=== PATIENT | female | born 1965 | race Caucasian/White ===

== ENCOUNTER → 2017-02-09 | Outpatient (CLI) | payer OTHER ==
[~2017-02-09] MED LIST: BCPILLS PO; CALCTAB7 PO; GLCSC500400 PO; LORA-741 PO; OMEG10007 PO; OXYC-57 PO
--- NOTE | 2017-02-09 14:35 | DIAGNOSTIC IMAGING REPORT ---
LUMBAR SPINE MRI HISTORY: Pain. Neuropathy. M51.06 TECHNIQUE: Multiplanar multisequence MRI of the lumbar spine was performed without the use of contrast. COMPARISON: None. FINDINGS: For the purpose of the report the L5-S1 disc space will be located on axial image 27 of 30. Normal signal characteristics the vertebral bodies. Mild disc desiccation with posterior bulging disc components at L5-S1. Remaining intervertebral discs are unremarkable. L1-L2: No significant central canal or neural foraminal narrowing. L2-L3: No significant central canal or neural foraminal narrowing. L3-L4: No significant central canal or neural foraminal narrowing. L4-L5: No significant central canal or neural foraminal narrowing. L5-S1: Mild right posterior disc herniation. Slight displacement right S1 nerve root. Minimal impact anterior thecal sac. Left neuroforamina is patent. IMPRESSION: 1. Mild right posterior disc herniation L5-S1. 2. Otherwise negative MRI of lumbar spine. Electronically signed by: Yunior Berrios M.D. 02/09/2017 2:33 PM Dictated Date/Time: 02/09/2017 2:30 PM
== END | disposition home or self-care (01) ==
LOC: C.MRIBC 13:20
PROVIDERS: ATTEND Family Medicine
DX: M51.17 Intervertebral disc disorders with radiculopathy, lumbosacral region (principal)

== ENCOUNTER 2017-05-18 13:58 | Emergency (ER) | payer OTHER ==
[~2017-05-18] VITALS: Ht 163.8 cm; Wt 57.0 kg
[~2017-05-18 13:58] MED LIST changes: -OXYC-57 PO
[2017-05-18 14:01] VITALS: Ht 163.8 cm; Wt 57.0 kg
[2017-05-18] MEDS ORDERED: ONDANSETRON INJ 2 MG/ML 2 ML VIAL IV STA (14:17)
--- NOTE | 2017-05-18 14:22 | EMERGENCY ROOM VISIT NOTE ---
History First contact with patient: 14:09 Chief Complaint: DIZZY Stated Complaint: LIGHTHEADED-CODE PURPLE History of Present Illness The patient is a 51 year old female who presents to the Emergency Room with complaints of a near syncopal episode prior to arrival. The patient is in the hospital to visit her father who is admitted. She started feeling nauseous, and thought that she needed to eat something as she only had a protein shake earlier this morning. When she was waiting for her food at the snack bar, she began feeling lightheaded and her vision was starting to go white. She denies any headache. She is still complaining of nausea. She denies any abdominal pain. She felt fine yesterday, and denies any recent illnesses. She reports eating and drinking normally yesterday. She denies any new medications. Review of Systems 10 system review performed and negative unless noted in HPI or below Past Medical/Surgical History Herniated disc in her back Social History Smoking Status: Never Smoker Alcohol Use: occasionally Current/Historical Medications Scheduled Oxycodone/Acetaminophen 5MG/325MG (Percocet 5MG/325MG), 1 TABLET PO DAILY Physical Exam Vital Signs Date Time Temp Pulse Resp B/P (MAP) Pulse Ox O2 Delivery O2 Flow Rate FiO2 05/18/17 15:49 65 20 120/72 97 Room Air 05/18/17 15:26 70 05/18/17 14:54 66 115/78 71 114/85 79 123/86 05/18/17 14:18 72 20 118/75 97 Room Air 05/18/17 14:01 91 15 127/76 100 Room Air Physical Exam VITALS: Vitals are noted on the nurse's note and reviewed by myself. Vital signs stable. GENERAL: 51-year-old female, in no acute distress, nondiaphoretic, well- developed well-nourished. SKIN: The skin was without rashes, erythema, edema, or bruising. There is no tenting of the skin. Capillary reflex less than 2 seconds. HEAD: Normocephalic atraumatic. EYES: Pupils equal round and reactive to light and accommodation. Conjunctivae without injection, sclerae without icterus. Extraocular movements intact. MOUTH: Mucous membranes moist. Tonsils are not enlarged. Pharynx without erythema or exudate. Uvula midline. Airway patent. Tongue does not deviate. NECK: Supple without nuchal rigidity. No JVD. HEART: Regular rate and rhythm without murmurs gallops or rubs. LUNGS: Clear to auscultation bilaterally without wheezes, rales or rhonchi. No accessory muscle use. ABDOMEN: Positive bowel sounds x 4.Soft, nontender, without organomegaly. No guarding or rebound tenderness. MUSCULOSKELETAL: No muscle atrophy, erythema, or edema noted. Strength 5/5 throughout. NEURO: Patient was alert and oriented to person place and time. Normal sensation to touch. No focal neurological deficits. Medical Decision & Procedures Laboratory Results 05/18/17 14:30 Red Blood Count 4.29, Mean Corpuscular Volume 89.3, Mean Corpuscular Hemoglobin 30.3, Mean Corpuscular Hemoglobin Concent 33.9, Mean Platelet Volume 9.9, Neutrophils (%) (Auto) 50.8, Lymphocytes (%) (Auto) 40.2, Monocytes (%) (Auto) 6.2, Eosinophils (%) (Auto) 2.4, Basophils (%) (Auto) 0.3, Neutrophils # (Auto) 3.89, Lymphocytes # (Auto) 3.07, Monocytes # (Auto) 0.47, Eosinophils # (Auto) 0.18, Basophils # (Auto) 0.02 05/18/17 14:30 Test 05/18/17 14:13 05/18/17 14:30 05/18/17 15:00 Bedside Glucose 88 mg/dl (70-90) White Blood Count 7.64 K/uL (4.8-10.8) Red Blood Count 4.29 M/uL (4.2-5.4) Hemoglobin 13.0 g/dL (12.0-16.0) Hematocrit 38.3 % (37-47) Mean Corpuscular Volume 89.3 fL (80-100) Mean Corpuscular Hemoglobin 30.3 pg (25-34) Mean Corpuscular Hemoglobin Concent 33.9 g/dl (32-36) Platelet Count 244 K/uL (130-400) Mean Platelet Volume 9.9 fL (7.4-10.4) Neutrophils (%) (Auto) 50.8 % Lymphocytes (%) (Auto) 40.2 % Monocytes (%) (Auto) 6.2 % Eosinophils (%) (Auto) 2.4 % Basophils (%) (Auto) 0.3 % Neutrophils # (Auto) 3.89 K/uL (1.4-6.5) Lymphocytes # (Auto) 3.07 K/uL (1.2-3.4) Monocytes # (Auto) 0.47 K/uL (0.11-0.59) Eosinophils # (Auto) 0.18 K/uL (0-0.5) Basophils # (Auto) 0.02 K/uL (0-0.2) RDW Standard Deviation 39.3 fL (36.4-46.3) RDW Coefficient of Variation 12.2 % (11.5-14.5) Immature Granulocyte % (Auto) 0.1 % Immature Granulocyte # (Auto) 0.01 K/uL (0.00-0.02) Anion Gap 8.0 mmol/L (3-11) Est Creatinine Clear Calc Drug Dose 84.0 ml/min Estimated GFR () 116.0 Estimated GFR (Non- 100.1 BUN/Creatinine Ratio 30.3 (10-20) Calcium Level 9.2 mg/dl (8.5-10.1) Total Bilirubin 0.8 mg/dl (0.2-1) Aspartate Amino Transf (AST/SGOT) 23 U/L (15-37) Alanine Aminotransferase (ALT/SGPT) 30 U/L (12-78) Alkaline Phosphatase 36 U/L (45-117) Troponin I < 0.015 ng/ml (0-0.045) Total Protein 7.0 gm/dl (6.4-8.2) Albumin 3.9 gm/dl (3.4-5.0) Globulin 3.1 gm/dl (2.5-4.0) Albumin/Globulin Ratio 1.3 (0.9-2) Lipase 92 U/L (73-393) Urine Color YELLOW Urine Appearance CLOUDY (CLEAR) Urine pH 7.0 (4.5-7.5) Urine Specific [place] 1.024 (1.000-1.030) Urine Protein NEG (NEG) Urine Glucose (UA) NEG (NEG) Urine Ketones NEG (NEG) Urine Occult Blood NEG (NEG) Urine Nitrite NEG (NEG) Urine Bilirubin NEG (NEG) Urine Urobilinogen NEG (NEG) Urine Leukocyte Esterase NEG (NEG) Urine WBC (Auto) 1-5 /hpf (0-5) Urine RBC (Auto) 0-4 /hpf (0-4) Urine Hyaline Casts (Auto) 1-5 /lpf (0-5) Urine Epithelial Cells (Auto) >30 /lpf (0-5) Urine Bacteria (Auto) NEG (NEG) Urine Renal Epithelial Cells /lpf (0-5) Urine Test NEG (NEG) Medications Administered Medications (Trade) Dose Ordered Sig/Debbie Route Start Time Stop Time Status Last Admin Dose Admin Sodium Chloride 1,000 ml @ 999 mls/hr Q1H1M ONCE IV 05/18/17 14:30 05/18/17 15:30 DC 05/18/17 14:46 999 MLS/HR Ondansetron HCl (Zofran Inj) 4 mg NOW STAT IV 05/18/17 14:17 05/18/17 14:19 DC 05/18/17 14:45 4 MG Potassium Chloride (Klor-Con M10) 40 meq NOW STAT PO 05/18/17 15:21 05/18/17 15:22 DC 05/18/17 15:28 40 MEQ ECG Indication: syncope Rate (beats per minute): 69 Rhythm: normal sinus ED Course Patient was seen and examined Vital signs including blood pressure were reviewed medications list was verified with patient Labs were obtained, and a saline lock was established An EKG was performed, and the patient was put on a monitor The patient was hydrated with 1 L of normal saline. She was given Zofran 4 mg IV for nausea Upon reevaluation, the patient was resting comfortably. She was feeling much better. We discussed the results of her workup. I reviewed discharge instructions the patient. They voiced understanding and had no further questions. Medical Decision Differential diagnosis: Vasovagal syncope, dehydration, hypoglycemia, CVA, cardiac arrhythmia, TN, PE This patient is a 51-year-old female, otherwise healthy that presents emergency department with a near syncopal episode today. Her neurologic exam was intact. I did not suspect a CVA. Her abdomen was benign. I cannot elicit any tenderness on exam. The patient did appear somewhat dehydrated. She also did not eat much besides a protein shake shake earlier today. Her troponin is negative. EKG shows normal sinus rhythm. Do not suspect a cardiac arrhythmia or TN. The patient had good symptomatic relief after fluids and Zofran. She was advised to increase her fluid intake over the next few days. She was also advised to follow-up with her primary care physician for recheck, return to the emergency department with any new or persistent symptoms Medication Reconcilliation Current Medication List: was personally reviewed by me Blood Pressure Screening Patient's blood pressure: Normal blood pressure Impression Primary Impression: Near syncope Departure Information Dispostion Home / Self-Care Condition GOOD Referrals No Doctor, Assigned (PCP) Patient Instructions My [facility] Additional Instructions You were evaluated in the emergency department for almost passing out. It appears that you are slightly dehydrated. Please try to increase your fluid intake over the next 48 hours. No strenuous activity for the rest of the day Return to the emergency department if you have any of the following symptoms: -Fever of 103F or greater -Persistent vomiting - Persistent diarrhea -Lethargy -Chest pain -Shortness of breath -Severe dizziness -Weakness on one side of your body -Slurred speech
[2017-05-18] MEDS ORDERED: SODIUM CHLORIDE 0.9% 1000ML 1,000 ML IV ONE (14:30)
[2017-05-18 14:48] LABS: BASO % 0.3 %; BASO ABS # 0.02 K/uL (0-0.2); COMPLETE YES; EOS % 2.4 %; HEMATOCRIT 38.3 % (37-47); IG% 0.1 %; LYMPH % 40.2 %; LYMPH ABS # 3.07 K/uL (1.2-3.4); MEAN CELL VOLUME 89.3 fL (80-100); MEAN CORPUSCULAR HEMOGLOBIN 30.3 pg (25-34); MEAN CORPUSCULAR HGB CONC 33.9 g/dl (32-36); MEAN PLATELET VOLUME 9.9 fL (7.4-10.4); MONO % 6.2 %; NEUT % 50.8 %; PLATELET COUNT 244 K/uL (130-400); RED BLOOD COUNT 4.29 M/uL (4.2-5.4); WHITE BLOOD COUNT 7.64 K/uL (4.8-10.8)
[2017-05-18 15:05] LABS: ALT/SGPT 30 U/L (12-78); BLOOD UREA NITROGEN 21 mg/dl (7-18); BUN/CREATININE RATIO 30.3 (10-20); CALCIUM 9.2 mg/dl (8.5-10.1); CARBON DIOXIDE 27 mmol/L (21-32); CHLORIDE 105 mmol/L (98-107); CREATININE 0.69 mg/dl (0.60-1.20); GLUCOSE 92 mg/dl (70-99); POTASSIUM 3.4 mmol/L (3.5-5.1); SODIUM 140 mmol/L (136-145)
[2017-05-18 15:10] LABS: ALB/GLOB RATIO 1.3 (0.9-2); ALKALINE PHOSPHATASE 36 U/L (45-117); AST/SGOT 23 U/L (15-37)
[2017-05-18 15:12] LABS: URINE APPEARANCE CLOUDY (CLEAR); URINE BILIRUBIN NEG (NEG); URINE COLOR YELLOW; URINE EPITHELIAL CELL AUTO >30 /lpf (0-5); URINE NITRITE NEG (NEG); URINE SPECIFIC GRAVITY 1.024 (1.000-1.030); UROBILINOGEN NEG (NEG)
[2017-05-18 15:14] LABS: MANUAL MICROSCOPIC REQUIRED? NO; REVIEW REQ? YES
[2017-05-18] MEDS ORDERED: OXYC-57 PO (15:15)
[2017-05-18] MEDS ORDERED: POTASSIUM CHLORIDE 10 MEQ TABCR PO STA (15:21)
[2017-05-18 15:49] VITALS: BP 120/72; PULSE 65; O2SAT 97
== END 2017-05-18 15:50 | disposition home or self-care (01) ==
LOC: C.EDB 13:59 → C.EDA 15:50
DX: R55 Syncope and collapse (principal); E86.0 Dehydration; Z79.899 Other long term (current) drug therapy